=== PATIENT | female | born 1955 | race Caucasian/White ===

== ENCOUNTER → 2021-08-12 11:49 | Outpatient (CLI) | payer MEDICARE, OTHER, SELFPAY ==
--- NOTE | 2021-08-12 11:57 | DI.RAD.S_ITS ---
PROCEDURE: XR ELBOW RT MIN 3V INDICATIONS: EPICONDYLITIS TECHNIQUE: 3 views of the elbow were acquired. COMPARISON: None. FINDINGS: Bones: No fractures or dislocations. No suspicious bony lesions. Soft tissues: No elbow joint effusion. No suspicious soft tissue calcifications. IMPRESSION: Normal right elbow radiographs. Dictated by: Phil Rosario M.D. on 08/12/2021 at 13:53 Approved by: Phil Rosario M.D. on 08/12/2021 at 13:55
== END ==
PROVIDERS: Referring Provider Chiropractor; Visit Provider Chiropractor
DX: M77.11 Lateral epicondylitis, right elbow (principal)
CPT/HCPCS: 73080